=== PATIENT | male | born 1980 | race African-American/Black ===

== ENCOUNTER 2019-05-07 07:00 | Outpatient (CLI) | payer BC ==
--- NOTE | 2019-05-07 08:42 | ULT ---
SONOGRAM RIGHT UPPER QUADRANT: HISTORY: Abnormal liver function tests. FINDINGS: Minimal echogenic sludge is present within the dependent portion of the gallbladder lumen. No gallbl adder wall thickening or pericholecystic fluid. No shadowing stone is evident. The common duct is 0.3 cm. Liver is enlarged and diffusely echogenic with areas of fatty sparing near the gallbladder fossa. No intrahepatic biliary dilatation. No free fluid. IMPRESSION: 1. Very small amount of biliary sludge within the gallbladder lumen, evidence of chronic gallbladder dyskinesis. No evidence of acute biliary obstruction. 2. Hepatosteatosis. POS: [facility]
== END 2019-05-07 07:01 | disposition home or self-care (01) ==
LOC: BICULT 07:00
PROVIDERS: ATTEND Physician Assistant
DX: R79.89 Other specified abnormal findings of blood chemistry (principal); K82.8 Other specified diseases of gallbladder; K76.0 Fatty (change of) liver, not elsewhere classified
CPT/HCPCS: 76705

== ENCOUNTER 2024-12-22 02:31 | Emergency (ER) | payer SELFPAY ==
[2024-12-22] MEDS ORDERED: Furosemide 40 MG (4 mL) VIAL ONE (03:55)
[2024-12-22 04:31] LABS: #Basophils 0.03 10x3/uL (0.0-0.2); #Eosinophils 0.03 10x3/uL (0.0-0.7); #Monocytes 0.85 10x3/uL (0.11-0.59); #Neutrophils 5.45 10x3/uL (1.40-6.50); %Basophils 0.4 % (0.0-1.0); %Eosinophils 0.4 % (0.0-10.0); %Lymphocytes 17.9 % (21.0-51.0); %Monocytes 10.8 % (0.0-10.0); %Neutrophils 69.1 % (42.0-75.0); Hematocrit 31.8 % (42.0-52.0); Hemoglobin 10.1 g/dL (14.0-18.0); Mean Corpuscular Hemoglobin 29.0 pg (27.0-31.0); Mean Corpuscular Volume 91.4 fL (78.0-98.0); Platelet Count 356 10x3/uL (130-400); Red Blood Cell (RBC) Count 3.48 mill/uL (4.70-6.10); White Blood Cell (WBC) Count 7.88 10x3/uL (4.8-10.8)
[2024-12-22 04:43] LABS: INR-International Normal Ratio 1.4; PTT 38.1 sec (22.9-36.1); Prothrombin Time 17.0 sec (12.0-14.7)
[2024-12-22 05:25] LABS: ALT (SGPT) 111 U/L (Less than 45); AST (SGOT) 143 U/L (11-34); Albumin 2.4 g/dL (3.1-4.5); Alkaline Phosphatase 220 U/L (40-110); Anion Gap 14 mmol/L (10-20); BUN (Urea Nitrogen) 16 mg/dL (8.9-20.6); Bilirubin, Total 4.4 mg/dL (0.3-1.2); Calc. Creatinine Clearance 0 mL/min (70-130); Calcium 9.8 mg/dL (7.8-10.44); Carbon Dioxide 24 mmol/L (22-29); Chloride 100 mmol/L (98-107); Globulin 5.5 g/dL (2.4-3.5); Glucose 86 mg/dL (70-105); Lipase 137 U/L (8-78); Magnesium 2.0 mg/dL (1.6-2.6); Potassium 3.7 mmol/L (3.5-5.1); Sodium 134 mmol/L (136-145)
== END 2024-12-22 06:33 | disposition home or self-care (01) ==
LOC: ERS 02:31
DX: I50.9 Heart failure, unspecified (principal); Z87.891 Personal history of nicotine dependence
CPT/HCPCS: 36415; 80053; 83605; 83690; 83735; 83880; 84484; 85025; 85610; 85730; 96374; 96375; J1940; J2270

== ENCOUNTER 2025-01-22 00:34 | Inpatient (IN) | payer SELFPAY ==
[2025-01-22 01:35] LABS: #Basophils 0.04 10x3/uL (0.0-0.2); #Eosinophils Less than 0.03 10x3/uL (0.0-0.7); #Monocytes 0.47 10x3/uL (0.11-0.59); #Neutrophils 9.58 10x3/uL (1.40-6.50); %Basophils 0.4 % (0.0-1.0); %Eosinophils 0.0 % (0.0-10.0); %Lymphocytes 6.7 % (21.0-51.0); %Monocytes 4.3 % (0.0-10.0); %Neutrophils 88.3 % (42.0-75.0); Hematocrit 35.8 % (42.0-52.0); Hemoglobin 11.1 g/dL (14.0-18.0); Mean Corpuscular Hemoglobin 28.9 pg (27.0-31.0); Mean Corpuscular Volume 93.2 fL (78.0-98.0); Platelet Count 125 10x3/uL (130-400); Red Blood Cell (RBC) Count 3.84 mill/uL (4.70-6.10); White Blood Cell (WBC) Count 10.85 10x3/uL (4.8-10.8)
[2025-01-22 01:51] LABS: ALT (SGPT) 44 U/L (Less than 45); AST (SGOT) 94 U/L (11-34); Albumin 3.3 g/dL (3.1-4.5); Alkaline Phosphatase 211 U/L (40-110); Anion Gap 24 mmol/L (10-20); BUN (Urea Nitrogen) 7 mg/dL (8.9-20.6); Bilirubin, Total 3.9 mg/dL (0.3-1.2); Calc. Creatinine Clearance 0 mL/min (70-130); Calcium 8.9 mg/dL (7.8-10.44); Carbon Dioxide 18 mmol/L (22-29); Chloride 104 mmol/L (98-107); Globulin 4.3 g/dL (2.4-3.5); Glucose 75 mg/dL (70-105); Potassium 3.6 mmol/L (3.5-5.1); Sodium 142 mmol/L (136-145)
[2025-01-22 03:20] LABS: Bacteria/HPF None Seen HPF (None Seen); CAUTI Indications for Culture Alt mental st,lethar; Glucose, Urine (Dipstick) Greater than 1000 mg/dL (Negative); Leukocyte Negative Leu/uL (Negative); Protein, Urine (Dipstick) 10 mg/dL (Neg-Trace); RBC/HPF 0-3 HPF (0-3); Specific Gravity, Urine 1.012 (1.002-1.036); WBC/HPF None Seen HPF (0-3)
[2025-01-22 03:24] LABS: Acetaminophen Less than 10 mcg/mL (Less than 10); Salicylate Less than 8.0 mg/dL (Less than 8.0)
[2025-01-22 03:36] LABS: Urine Culture Reflex No No
[2025-01-22 03:45] LABS: Cocaine Metabolite Screen Negative (Negative); THC/Cannabinoid Screen Negative (Negative); Tricyclic Screen Negative (Negative)
[2025-01-22] MEDS ORDERED: cefTRIAXone (ROCEPHIN) 2 GM VIAL ONE (04:12)
[2025-01-22] MEDS ORDERED: Ondansetron PF 4 MG/2 ML Vial IVP PRN (05:18)
[2025-01-22] MEDS ORDERED: Acetaminophen 325 MG TAB PO PRN (05:18)
[2025-01-22] MEDS ORDERED: Calcium Carbonate 500 MG ChewTAB PO PRN (05:18)
[2025-01-22] MEDS ORDERED: Electrolyte Replacement Protocol 1 EACH FS PRN ×2 (05:30)
[2025-01-22] MEDS: Multivitamins, Adult 10 ML, Thiamine HCl 100 MG, Folic Acid 1 MG in Dextrose 5 %-0.45 %... IV SCH (07:45)
[2025-01-22] MEDS ORDERED: Folic Acid 1 MG TAB ONE (09:44)
[2025-01-22] MEDS ORDERED: Multivit, Therapeutic 1 TAB ONE (09:44)
[2025-01-22] MEDS ORDERED: Iopamidol 370 76% 100 ML VIAL ONE (10:07)
[2025-01-22] MEDS: Multivit, Therapeutic 1 TAB PO SCH (10:15)
[2025-01-22] MEDS: Folic Acid 1 MG TAB PO SCH (10:15)
[2025-01-22 14:57] VITALS: BMI 23.7
[2025-01-22] MEDS: Furosemide 20 MG (2 mL) VIAL SLOW IVP SCH (17:53)
[2025-01-22 18:17] LABS: Cocaine Metabolite Screen Negative (Negative); THC/Cannabinoid Screen Negative (Negative); Tricyclic Screen Negative (Negative)
[2025-01-22] MEDS: Melatonin 3 MG TAB PO PRN (20:20)
[2025-01-23 03:57] LABS: #Basophils Less than 0.03 10x3/uL (0.0-0.2); #Eosinophils Less than 0.03 10x3/uL (0.0-0.7); #Monocytes 1.03 10x3/uL (0.11-0.59); #Neutrophils 8.95 10x3/uL (1.40-6.50); %Basophils 0.1 % (0.0-1.0); %Eosinophils 0.0 % (0.0-10.0); %Lymphocytes 9.3 % (21.0-51.0); %Monocytes 9.3 % (0.0-10.0); %Neutrophils 80.8 % (42.0-75.0); Hematocrit 37.7 % (42.0-52.0); Hemoglobin 11.1 g/dL (14.0-18.0); Mean Corpuscular Hemoglobin 29.3 pg (27.0-31.0); Mean Corpuscular Volume 99.5 fL (78.0-98.0); Platelet Count 100 10x3/uL (130-400); Red Blood Cell (RBC) Count 3.79 mill/uL (4.70-6.10); White Blood Cell (WBC) Count 11.07 10x3/uL (4.8-10.8)
[2025-01-23 05:00] LABS: ALT (SGPT) 322 U/L (Less than 45); AST (SGOT) 861 U/L (11-34); Albumin 3.2 g/dL (3.1-4.5); Alkaline Phosphatase 183 U/L (40-110); Anion Gap 31 mmol/L (10-20); BUN (Urea Nitrogen) 21 mg/dL (8.9-20.6); Bilirubin, Total 8.8 mg/dL (0.3-1.2); Calcium 9.5 mg/dL (7.8-10.44); Carbon Dioxide 13 mmol/L (22-29); Chloride 98 mmol/L (98-107); Globulin 4.3 g/dL (2.4-3.5); Glucose 94 mg/dL (70-105); Potassium 5.0 mmol/L (3.5-5.1); Sodium 137 mmol/L (136-145)
[2025-01-23] MEDS: Furosemide 20 MG (2 mL) VIAL SLOW IVP SCH (05:37)
[2025-01-23 07:00] LABS: Calc. Creatinine Clearance 57 mL/min (70-130)
[2025-01-23] MEDS: Carvedilol 6.25 MG TAB PO SCH (08:42)
[2025-01-23] MEDS: Dapagliflozin Propanediol 10 MG TAB PO SCH (08:42)
[2025-01-23] MEDS: cefTRIAXone\\ROCEPHIN 1 GM in Sodium Chloride 0.9% 100 ML IVPB SCH (08:42)
[2025-01-23] MEDS: Spironolactone 25 MG TAB PO SCH (08:43)
[2025-01-23] MEDS: PNEUMOC 20-VAL CONJ-DIP CRM/PF 0.5 ML SYRINGE IM ONE (11:58)
[2025-01-23 12:11] LABS: INR-International Normal Ratio 2.8; Prothrombin Time 29.8 sec (12.0-14.7)
[2025-01-23 12:30] LABS: ALT (SGPT) 750 U/L (Less than 45); AST (SGOT) 2165 U/L (11-34); Albumin 3.0 g/dL (3.1-4.5); Alkaline Phosphatase 190 U/L (40-110); Bilirubin, Direct 5.2 mg/dL (0.1-0.3); Bilirubin, Total 7.7 mg/dL (0.3-1.2)
[2025-01-23 12:52] LABS: Hep A IgM AB NONREACTIVE (NonReactive); Hep A IgM S/CO 0.23 S/CO (0-0.79); Hep B Core IgM Index 0.08 S/CO (0-0.79); Hep B Surf Ag NONREACTIVE S/CO (NonReactive); Hep C IgG Ab NONREACTIVE S/CO (NonReactive); Hep C Index 0.09 S/CO (0-0.79)
[2025-01-24] MEDS: Guaifenesin DM 100-10/5 ML UDCUP PO PRN (04:14)
[2025-01-24 04:44] LABS: #Basophils 0.03 10x3/uL (0.0-0.2); #Eosinophils 0.03 10x3/uL (0.0-0.7); #Monocytes 0.31 10x3/uL (0.11-0.59); #Neutrophils 8.28 10x3/uL (1.40-6.50); %Basophils 0.3 % (0.0-1.0); %Eosinophils 0.3 % (0.0-10.0); %Lymphocytes 14.0 % (21.0-51.0); %Monocytes 3.1 % (0.0-10.0); %Neutrophils 81.9 % (42.0-75.0); Hematocrit 34.5 % (42.0-52.0); Hemoglobin 10.9 g/dL (14.0-18.0); Mean Corpuscular Hemoglobin 29.6 pg (27.0-31.0); Mean Corpuscular Volume 93.8 fL (78.0-98.0); Platelet Count 99 10x3/uL (130-400); Red Blood Cell (RBC) Count 3.68 mill/uL (4.70-6.10); White Blood Cell (WBC) Count 10.11 10x3/uL (4.8-10.8)
[2025-01-24 04:56] LABS: ALT (SGPT) 786 U/L (Less than 45); AST (SGOT) 1504 U/L (11-34); Albumin 2.9 g/dL (3.1-4.5); Alkaline Phosphatase 195 U/L (40-110); Anion Gap 14 mmol/L (10-20); BUN (Urea Nitrogen) 35 mg/dL (8.9-20.6); Bilirubin, Total 6.4 mg/dL (0.3-1.2); Calc. Creatinine Clearance 46 mL/min (70-130); Calcium 9.7 mg/dL (7.8-10.44); Carbon Dioxide 28 mmol/L (22-29); Chloride 101 mmol/L (98-107); Globulin 4.3 g/dL (2.4-3.5); Glucose 78 mg/dL (70-105); Potassium 3.7 mmol/L (3.5-5.1); Sodium 139 mmol/L (136-145)
[2025-01-24] MEDS: Carvedilol 6.25 MG TAB PO SCH (08:08)
[2025-01-25 04:07] LABS: ALT (SGPT) 629 U/L (Less than 45); AST (SGOT) 780 U/L (11-34); Albumin 2.7 g/dL (3.1-4.5); Alkaline Phosphatase 177 U/L (40-110); Anion Gap 14 mmol/L (10-20); BUN (Urea Nitrogen) 27 mg/dL (8.9-20.6); Bilirubin, Total 5.7 mg/dL (0.3-1.2); Calc. Creatinine Clearance 102 mL/min (70-130); Calcium 9.0 mg/dL (7.8-10.44); Carbon Dioxide 26 mmol/L (22-29); Chloride 98 mmol/L (98-107); Globulin 4.0 g/dL (2.4-3.5); Glucose 133 mg/dL (70-105); Potassium 3.4 mmol/L (3.5-5.1); Sodium 135 mmol/L (136-145)
[2025-01-25 04:31] LABS: #Basophils Less than 0.03 10x3/uL (0.0-0.2); #Eosinophils 0.10 10x3/uL (0.0-0.7); #Monocytes 0.46 10x3/uL (0.11-0.59); #Neutrophils 7.50 10x3/uL (1.40-6.50); %Basophils 0.2 % (0.0-1.0); %Eosinophils 1.1 % (0.0-10.0); %Lymphocytes 8.0 % (21.0-51.0); %Monocytes 5.2 % (0.0-10.0); %Neutrophils 84.9 % (42.0-75.0); Hematocrit 34.1 % (42.0-52.0); Hemoglobin 10.8 g/dL (14.0-18.0); Mean Corpuscular Hemoglobin 29.6 pg (27.0-31.0); Mean Corpuscular Volume 93.4 fL (78.0-98.0); Platelet Count 92 10x3/uL (130-400); Red Blood Cell (RBC) Count 3.65 mill/uL (4.70-6.10); White Blood Cell (WBC) Count 8.84 10x3/uL (4.8-10.8)
[2025-01-25] MEDS: Thiamine 100 MG TAB PO SCH (08:18)
[2025-01-25] MEDS ORDERED: Furosemide 20 MG (2 mL) VIAL SLOW IVP SCH (12:46)
[2025-01-25] MEDS: Furosemide 40 MG (4 mL) VIAL SLOW IVP SCH (15:45)
[2025-01-26 04:11] LABS: #Basophils 0.04 10x3/uL (0.0-0.2); #Eosinophils 0.21 10x3/uL (0.0-0.7); #Monocytes 0.65 10x3/uL (0.11-0.59); #Neutrophils 4.70 10x3/uL (1.40-6.50); %Basophils 0.6 % (0.0-1.0); %Eosinophils 3.0 % (0.0-10.0); %Lymphocytes 18.9 % (21.0-51.0); %Monocytes 9.4 % (0.0-10.0); %Neutrophils 67.7 % (42.0-75.0); Hematocrit 34.6 % (42.0-52.0); Hemoglobin 10.8 g/dL (14.0-18.0); Mean Corpuscular Hemoglobin 29.3 pg (27.0-31.0); Mean Corpuscular Volume 93.8 fL (78.0-98.0); Platelet Count 99 10x3/uL (130-400); Red Blood Cell (RBC) Count 3.69 mill/uL (4.70-6.10); White Blood Cell (WBC) Count 6.94 10x3/uL (4.8-10.8)
[2025-01-26 04:36] LABS: ALT (SGPT) 543 U/L (Less than 45); AST (SGOT) 490 U/L (11-34); Albumin 2.7 g/dL (3.1-4.5); Alkaline Phosphatase 177 U/L (40-110); Anion Gap 13 mmol/L (10-20); BUN (Urea Nitrogen) 21 mg/dL (8.9-20.6); Bilirubin, Total 4.2 mg/dL (0.3-1.2); Calc. Creatinine Clearance 98 mL/min (70-130); Calcium 8.8 mg/dL (7.8-10.44); Carbon Dioxide 27 mmol/L (22-29); Chloride 100 mmol/L (98-107); Globulin 3.9 g/dL (2.4-3.5); Glucose 106 mg/dL (70-105); Potassium 3.4 mmol/L (3.5-5.1); Sodium 137 mmol/L (136-145)
[2025-01-26] MEDS: Lisinopril 2.5 MG TAB PO SCH (10:00)
[2025-01-26 17:48] LABS: Potassium 4.2 mmol/L (3.5-5.1)
[2025-01-27 08:34] LABS: #Basophils 0.04 10x3/uL (0.0-0.2); #Eosinophils 0.17 10x3/uL (0.0-0.7); #Monocytes 1.27 10x3/uL (0.11-0.59); #Neutrophils 4.79 10x3/uL (1.40-6.50); %Basophils 0.5 % (0.0-1.0); %Eosinophils 2.2 % (0.0-10.0); %Lymphocytes 17.0 % (21.0-51.0); %Monocytes 16.7 % (0.0-10.0); %Neutrophils 63.1 % (42.0-75.0); Hematocrit 38.6 % (42.0-52.0); Hemoglobin 12.0 g/dL (14.0-18.0); Mean Corpuscular Hemoglobin 29.3 pg (27.0-31.0); Mean Corpuscular Volume 94.1 fL (78.0-98.0); Platelet Count 114 10x3/uL (130-400); Red Blood Cell (RBC) Count 4.10 mill/uL (4.70-6.10); White Blood Cell (WBC) Count 7.60 10x3/uL (4.8-10.8)
[2025-01-27 08:39] LABS: ALT (SGPT) 501 U/L (Less than 45); AST (SGOT) 350 U/L (11-34); Albumin 3.1 g/dL (3.1-4.5); Alkaline Phosphatase 192 U/L (40-110); Anion Gap 14 mmol/L (10-20); BUN (Urea Nitrogen) 22 mg/dL (8.9-20.6); Bilirubin, Total 3.8 mg/dL (0.3-1.2); Calc. Creatinine Clearance 97 mL/min (70-130); Calcium 9.5 mg/dL (7.8-10.44); Carbon Dioxide 28 mmol/L (22-29); Chloride 99 mmol/L (98-107); Globulin 4.5 g/dL (2.4-3.5); Glucose 110 mg/dL (70-105); Potassium 3.4 mmol/L (3.5-5.1); Sodium 138 mmol/L (136-145)
[2025-01-27 19:50] LABS: Potassium 4.1 mmol/L (3.5-5.1)
[2025-01-28 04:43] LABS: #Basophils 0.04 10x3/uL (0.0-0.2); #Eosinophils 0.20 10x3/uL (0.0-0.7); #Monocytes 1.31 10x3/uL (0.11-0.59); #Neutrophils 5.06 10x3/uL (1.40-6.50); %Basophils 0.5 % (0.0-1.0); %Eosinophils 2.4 % (0.0-10.0); %Lymphocytes 20.1 % (21.0-51.0); %Monocytes 15.7 % (0.0-10.0); %Neutrophils 60.6 % (42.0-75.0); Hematocrit 39.3 % (42.0-52.0); Hemoglobin 12.1 g/dL (14.0-18.0); Mean Corpuscular Hemoglobin 29.3 pg (27.0-31.0); Mean Corpuscular Volume 95.2 fL (78.0-98.0); Platelet Count 132 10x3/uL (130-400); Red Blood Cell (RBC) Count 4.13 mill/uL (4.70-6.10); White Blood Cell (WBC) Count 8.35 10x3/uL (4.8-10.8)
[2025-01-28 04:51] LABS: ALT (SGPT) 431 U/L (Less than 45); AST (SGOT) 245 U/L (11-34); Albumin 3.1 g/dL (3.1-4.5); Alkaline Phosphatase 186 U/L (40-110); Anion Gap 15 mmol/L (10-20); BUN (Urea Nitrogen) 23 mg/dL (8.9-20.6); Bilirubin, Total 3.4 mg/dL (0.3-1.2); Calc. Creatinine Clearance 82 mL/min (70-130); Calcium 9.3 mg/dL (7.8-10.44); Carbon Dioxide 24 mmol/L (22-29); Chloride 99 mmol/L (98-107); Globulin 4.7 g/dL (2.4-3.5); Glucose 110 mg/dL (70-105); Potassium 4.1 mmol/L (3.5-5.1); Sodium 134 mmol/L (136-145)
[2025-01-28 16:15] VITALS: BP 125/75; TEMP 97.4
== END 2025-01-28 18:55 | disposition home or self-care (01) | DRG 896 ==
LOC: ERS 00:34 → ERHOLD 05:21 → PCU 11:44
PROVIDERS: ADMIT Student in an Organized Health Care Education/Training Program; ATTEND Internal Medicine
PROC: 3E0234Z Introduction of Serum, Toxoid and Vaccine into Muscle, Percutaneous Approach (ICD-10-PCS; principal; 2025-01-23)
DX: F10.239 Alcohol dependence with withdrawal, unspecified (principal); I50.23 Acute on chronic systolic (congestive) heart failure; J96.01 Acute respiratory failure with hypoxia; J18.9 Pneumonia, unspecified organism; E87.20 Acidosis, unspecified; F10.229 Alcohol dependence with intoxication, unspecified; R10.9 Unspecified abdominal pain; E80.6 Other disorders of bilirubin metabolism; Z72.0 Tobacco use; R79.89 Other specified abnormal findings of blood chemistry; E87.6 Hypokalemia; E88.09 Other disorders of plasma-protein metabolism, not elsewhere classified; Z79.899 Other long term (current) drug therapy
CPT/HCPCS: 36415; 71045; 71275; 74177; 76705; 76770; 80053; 80074; 80306; 80307; 81001; 82010; 83605; 83690; 83880; 84300; 84443; 84484; 85025; 85610; 87040; 87428; 93005; 93306; 93798; 93970; 94760; 96374; 96375; J0696; J1250; J1940; J2543; J3411; J7042; J7120; Q9967